=== PATIENT | female | born 1990 | race Caucasian/White ===

== ENCOUNTER 2016-06-17 04:54 | Inpatient (IN) | payer SELFPAY ==
[~2016-06-17] VITALS: Ht 162.6 cm; Wt 59.9 kg
[2016-06-17] MEDS ORDERED: PREN1TAB79 PO (05:16)
[2016-06-17] MEDS ORDERED: OMEG1CAP30 PO (05:16)
[2016-06-17] MEDS ORDERED: CALC600T5 PO (05:16)
[2016-06-17 05:17] VITALS: BP 131/75; PULSE 84; RESP 20; Ht 162.6 cm; Wt 59.9 kg
[2016-06-17] MEDS: LACTATED RINGER'S 1,000 ML IV SCH ×3 (05:50→12:36)
[2016-06-17] MEDS ORDERED: CARBOPROST 250 MCG INJ IM PRN (06:00)
[2016-06-17] MEDS ORDERED: METHYLERGONOVINE 0.2 MG INJ IM PRN (06:00)
[2016-06-17] MEDS ORDERED: IBUPROFEN 600 MG TAB PO PRN (06:00)
[2016-06-17] MEDS ORDERED: MISOPROSTOL 200 MCG TAB PR PRN (06:00)
[2016-06-17] MEDS ORDERED: LIDOCAINE 1% (MPF) 30 ML INJ INJ PRN (06:00)
[2016-06-17] MEDS ORDERED: OXYTOCIN 30 UNITS/LR 500 ML IV PRN (06:00)
[2016-06-17] MEDS ORDERED: BUTORPHANOL 2 MG INJ IV PRN (06:00)
[2016-06-17] MEDS ORDERED: OXYTOCIN 30 UNITS/LR 500 ML IV SCH ×2 (06:00)
[2016-06-17] MEDS ORDERED: LACTATED RINGER'S 1,000 ML IV PRN (06:00)
[2016-06-17 07:16] LABS: BASOPHILS % 0.3 % (0.0-2.0); EOSINOPHILS # 0.1 10^3/ul (0.0-0.5); EOSINOPHILS % 1.7 % (0.0-7.0); HEMATOCRIT 31.4 % (37.0-47.0); HEMOGLOBIN 10.7 g/dl (12.0-16.0); LYMPHOCYTES # 1.3 10^3/ul (0.8-2.9); LYMPHOCYTES % 19.6 % (15.0-51.0); MEAN CORPUSCULAR HEMOGLOBIN 27.5 pg (29.0-33.0); MEAN PLATELET VOLUME 11.5 fl (7.4-10.4); MONOCYTE # 0.7 10^3/ul (0.3-0.9); NEUTROPHIL # 4.6 10^3/ul (1.6-7.5); NEUTROPHILS % 68.4 % (39.0-77.0); PLATELET COUNT 126 10^3/UL (140-440); RED BLOOD COUNT 3.88 10^6/ul (4.20-5.40); RED CELL DISTRIBUTION WIDTH 15.2 % (11.5-14.5); UNCORRECTED WBC 6.8 10^3/ul (4.8-10.8); WHITE BLOOD COUNT 6.8 10^3/ul (4.8-10.8)
[2016-06-17 07:19] LABS: CONDITION 1; INR 0.82; LH ANALYZER COMMENTS 1; PARTIAL THROMBOPLASTIN TIME 25.7 Sec (25.0-35.0); PROTIME 11.3 Sec (12.2-14.2); PT RATIO 0.9
[2016-06-17] MEDS ORDERED: FENTAnyl 2MCG/ML-ROPIV 0.2% 100 ML ONE (10:03)
[2016-06-17] MEDS ORDERED: NALOXONE (0.4 MG/ML) INJ IV PRN (12:30)
[2016-06-17] MEDS ORDERED: FENTAnyl 2MCG/ML-ROPIV 0.2% 100 ML BAG EPI SCH (12:30)
[2016-06-17 13:14] LABS: BARBITURATES NEGATIVE (NEGATIVE); BENZODIAZEPINES NEGATIVE (NEGATIVE); CANNABINOIDS NEGATIVE (NEGATIVE); COCAINE NEGATIVE (NEGATIVE); OPIATES NEGATIVE (NEGATIVE)
--- NOTE | 2016-06-17 15:39 | HP ---
Date/Time of Note Date/Time of Note DATE: 06/17/16 TIME: 15:22 OB - History Hx of Present Free Text/Dictation 25 years old white female 1 para 0 with a EDC June 19, 2016 admitted to [facility] labor and delivery room in active labor with premature rupture of membrane pelvic examination on admission cervical dilatation 4 cm 100% effacement vertex presentation at -2 station contractions every 2-3 minutes with a strong quality heart rate category 1 patient is being observed during the progress of labor. Allergy: Denies allergies to any known medication Social habit denies a smoking or drinking Medical history asthma with very infrequent asthma attacks Surgical history negative Review of system within normal Physical exam; 5 feet 2 , 59.9 kg Temperature 97.5 pulse 92 respiration 20 blood pressure 144/84 Head ears nose and throat negative Neck supple no thyromegaly Lungs clear to P&A, heart normal sinus rhythm no murmur Abdomen' fundal height 37 cm from symphysis pubis to the height of the fundus heart rate category 1 Pelvic exam cervix 4 cm 100% effaced vertex at -2 station Extremities no edema no varicosities Impression intrauterine at term in active labor Estimated Due Date: Jun 19, 2016 : 1 Para: 0 Care: Good Care Ultrasounds: Normal mid trimester US Obstetrical Complications: None, Other (Asthma) Past Family/Social History * Past Medical, Surgical, Family and Obstetric Histories reviewed from chart. Rubella: immune RPR/VDRL: Negative GBS Status: Negative HBsAG: Negative OB Admission Exam Vital Signs Vital Signs Vital Signs Date Time Temp Pulse Resp B/P Pulse Ox O2 Delivery O2 Flow Rate FiO2 06/17/16 05:17 97.5 84 20 131/75 Room Air Physical Exam HEENT: WNL Heart: Rhythm Normal Lungs: Clear, Equal Abdomen: WNL Extremities: Normal Reflexes: Normal Cervical Dilatation: 4cm Effacement: 100% Station: -1 Membranes: Ruptured Amniotic Fluid: Clear Heart Rate: 130's Decelerations: No Decelerations Varibility: Marked Contractions on Admission: < 5 Minutes Apart Intensity: Firm Last 72 hours Lab Results CBC & BMP 06/17/16 05:50 TIMUR CORRAL MD Jun 17, 2016 15:36
--- NOTE | 2016-06-17 15:42 | LDN ---
Date/Time of Note Date/Time of Note DATE: 06/17/16 TIME: 15:39 Delivery Summary Normal spontaneous vaginal delivery of a baby boy from JESUS position shoulders delivered without difficulty followed with the rest of the baby's body nasal oropharyngeal suction performed cord clamp after stopped pulsation baby handed to the team for immediate attention patient received 30 units of Pitocin through IV infusion, placenta; spontaneous expulsion inspected complete blood loss 250 cc patient sustained small first-degree perineal laceration which repaired with 3-0 Vicryl Placenta Delivered: Spontaneously Meconium: none Perineum intact?: No Anesthesia type: Epidural Estimated blood loss: 250 Sponge & Needle done & correct: Yes All needle counts correct: Yes Any foreign bodies felt in the: No Problems: Infant Delivery Information Sex Sex: male Apgars 1 Minute: 9 5 Minute: 9 Suctioning Nose & mouth suctioned at dacia: Yes Delee suction performed: No Umbilical Cord Umbilical cord with: 3 Vessels Cord presentations: nuchal cord Cord Blood was obtained: Yes TIMUR CORRAL MD Jun 17, 2016 15:42
[2016-06-17 17:37] VITALS: BP 125/73; PULSE 91; RESP 16
[2016-06-17] MEDS ORDERED: ACETAMINOPHEN/CODEINE #3 TAB PO PRN (18:00)
[2016-06-17] MEDS ORDERED: ACETAMINOPHEN 325 MG TAB PO PRN (18:00)
[2016-06-17] MEDS ORDERED: OXYCODONE/ASPIRIN (4.88/325) TAB PO PRN ×2 (18:00)
[2016-06-17] MEDS ORDERED: ONDANSETRON 4 MG INJ IV PRN (18:00)
[2016-06-17] MEDS: WITCH HAZEL/GLYCERIN PAD PR PRN (18:06)
[2016-06-17] MEDS: DIBUCAINE 1% 30 GM OINT PR PRN (18:06)
[2016-06-17] MEDS: LANOLIN 7 GM TUBE TOP PRN (18:07)
[2016-06-17] MEDS: BENZOCAINE 20% 56 ML SPRAY TOP PRN (18:07)
[2016-06-17] MEDS: IBUPROFEN 600 MG TAB PO SCH ×2 (18:08→23:21)
[2016-06-17 20:15] VITALS: BP 119/55; PULSE 98; RESP 19
[2016-06-17] MEDS: SENNA/DOCUSATE NA (8.6MG/50MG) TAB PO SCH (20:39)
[2016-06-17] MEDS: OXYTOCIN 30 UNITS/LR 500 ML IV SCH (20:41)
[2016-06-18] VITALS: BP 116/69; PULSE 99; RESP 20
[2016-06-18] MEDS: OXYTOCIN 30 UNITS/LR 500 ML IV SCH (00:16)
[2016-06-18 04:25] VITALS: BP 115/57; PULSE 91; RESP 18
[2016-06-18] MEDS: IBUPROFEN 600 MG TAB PO SCH ×3 (06:00→17:10)
[2016-06-18] MEDS: LANOLIN 7 GM TUBE TOP PRN (06:55)
[2016-06-18 07:07] LABS: BASOPHILS % 0.3 % (0.0-2.0); EOSINOPHILS # 0.1 10^3/ul (0.0-0.5); EOSINOPHILS % 0.7 % (0.0-7.0); HEMATOCRIT 29.7 % (37.0-47.0); HEMOGLOBIN 10.1 g/dl (12.0-16.0); LYMPHOCYTES # 1.4 10^3/ul (0.8-2.9); MEAN CORPUSCULAR HEMOGLOBIN 27.6 pg (29.0-33.0); MEAN CORPUSCULAR HGB CONC 34.1 g/dl (32.0-37.0); MEAN CORPUSCULAR VOLUME 80.8 fl (82.0-101.0); MEAN PLATELET VOLUME 11.4 fl (7.4-10.4); MONOCYTE # 0.9 10^3/ul (0.3-0.9); MONOCYTES % 7.8 % (0.0-11.0); NEUTROPHIL # 9.2 10^3/ul (1.6-7.5); NEUTROPHILS % 79.2 % (39.0-77.0); PLATELET COUNT 127 10^3/UL (140-440); RED BLOOD COUNT 3.67 10^6/ul (4.20-5.40); RED CELL DISTRIBUTION WIDTH 15.1 % (11.5-14.5); UNCORRECTED WBC 11.7 10^3/ul (4.8-10.8); WHITE BLOOD COUNT 11.7 10^3/ul (4.8-10.8)
[2016-06-18 07:31] LABS: CONDITION 1; LH ANALYZER COMMENTS 1; SUSPECT 1
[2016-06-18 07:40] VITALS: BP 119/66; PULSE 103; RESP 18
[2016-06-18] MEDS: SENNA/DOCUSATE NA (8.6MG/50MG) TAB PO SCH ×2 (08:41→22:32)
[2016-06-18] MEDS: ACETAMINOPHEN/CODEINE #3 TAB PO PRN (09:27)
[2016-06-18 10:03] LABS: PLATELETS CLUMPS RARE
--- NOTE | 2016-06-18 10:09 | PN ---
Date/Time of Note Date/Time of Note DATE: 06/18/16 TIME: 10:07 OB Subjective Subjective Subjective day 1 Afebrile abdomen soft uterus firm lochia normal complaining of pain in the perineal area due to first-degree perineal laceration and repair sitz bath recommended as well as pain medication. TIMUR CORRAL MD Jun 18, 2016 10:09
[2016-06-18 16:05] VITALS: BP 112/71; PULSE 98; RESP 16
[2016-06-18 20:30] VITALS: BP 103/53; PULSE 97; RESP 20
[2016-06-19] MEDS: IBUPROFEN 600 MG TAB PO SCH ×3 (00:48→11:21)
[2016-06-19 04:30] VITALS: BP 123/63; PULSE 90; RESP 18
[2016-06-19] MEDS ORDERED: DIPHTH/TET/ACEL PERTUSS (ADULT) 0.5 ML VIAL IM* ONE (07:00)
[2016-06-19] MEDS: WITCH HAZEL/GLYCERIN PAD PR PRN (07:29)
[2016-06-19] MEDS: DIBUCAINE 1% 30 GM OINT PR PRN (07:29)
[2016-06-19] MEDS: BENZOCAINE 20% 56 ML SPRAY TOP PRN (07:29)
[2016-06-19 07:30] VITALS: BP 119/75; PULSE 109; RESP 16
[2016-06-19] MEDS ORDERED: MEASLES,MUMPS,RUBELLA VACCINE INJ SC* ONE (09:00)
[2016-06-19] MEDS ORDERED: INFLUENZA VIRUS VACCINE 0.5 ML (DISPENSING) IM* ONE (09:00)
[2016-06-19] MEDS: SENNA/DOCUSATE NA (8.6MG/50MG) TAB PO SCH (09:11)
[2016-06-19] MEDS: ACETAMINOPHEN/CODEINE #3 TAB PO PRN (09:43)
[2016-06-19] MEDS ORDERED: HYDROCORTISONE 2.5% 30 GM RECT CR PR SCH ×2 (10:00→10:08)
--- NOTE | 2016-06-19 10:12 | DS ---
Date/Time of Note Date/Time of Note DATE: 06/19/16 TIME: 10:08 Obstetrical Discharge Record Final Diagnosis Final Diagnosis: Term delivered Vaginal Delivery Obstetrical Delivery: Spontaneous Condition on Discharge Physical Assessment Last Vitals: Post normal vaginal delivery day 2 Vital sign stable abdomen soft uterus firm lochia normal extremity normal, has moderate pain from the first degree perineal repair and hemorrhoid lidocaine and Anusol HC cream recommended Voiding: Yes Bowel Movement: Yes Breast: Soft, non-tender, Filling Calf Tenderness: No Patient Condition: Good TIMUR CORRAL MD Jun 19, 2016 10:12
[2016-06-19 15:43] LABS: RUBELLA ANTIBODY - IGG 4.44
== END 2016-06-19 13:00 | disposition home or self-care (01) | DRG 775 ==
LOC: OBT 04:54 → L-D 04:55 → OBT 05:28 → L-D 05:31 → PP1 17:15
PROVIDERS: ADMIT Obstetrics & Gynecology; ATTEND Obstetrics & Gynecology
PROC: 10E0XZZ Delivery of Products of Conception, External Approach (ICD-10-PCS; principal; 2016-06-17)
PROC: 0HQ9XZZ Repair Perineum Skin, External Approach (ICD-10-PCS; 2016-06-17)
DX: O70.0 First degree perineal laceration during delivery (principal); O69.81X0 Labor and delivery complicated by cord around neck, without compression, not applicable or unspecified; Z3A.39 39 weeks gestation of pregnancy; Z37.0 Single live birth
CPT/HCPCS: 36415; 62319; 80307; 85025; 85610; 85730; 86592; 86762; 86850; 86885; 86900; 86901; 87340; 90686; 90715; G0463; J2590; J2790; J3010; J7120